=== PATIENT | female | born 1990 | race Caucasian/White ===

== ENCOUNTER 2016-07-16 22:14 | Emergency (ER) | payer OTHER ==
[2016-07-16 22:52] LABS: BILIRUBIN NEGATIVE (NEGATIVE); BLOOD NEGATIVE Ery/uL (NEGATIVE); CLARITY CLEAR (CLEAR); COLOR YELLOW (YELLOW); GLUCOSE (U) NORMAL (NORMAL); KETONE (U) NEGATIVE (NEGATIVE); LEUKOCYTES NEGATIVE Leu/uL (NEGATIVE); NITRITE NEGATIVE (NEGATIVE); PROTEIN NEGATIVE (NEGATIVE); SPECIFIC GRAVITY >=1.030 (1.001-1.030)
[2016-07-16 23:07] LABS: BASOPHIL 0.2 % (0-2); EOSINOPHIL 2.3 % (0-5); HCT 35.9 % (37.0-47.0); HGB 11.9 g/dl (12.5-16.0); LYMPHOCYTE 21.4 % (15-48); MCH 31.4 pg (25.0-31.0); MCHC 33.1 g/dL (32.0-36.0); MCV 94.7 fL (78.0-100.0); MONOCYTE 6.9 % (0-12); MPV 9.8 fL (6.0-9.5); NEUTROPHIL 69.2 % (41-80); PLT 283 K/uL (150-400); RBC 3.79 M/uL (4.20-5.40); RDW 14.8 % (11.5-14.0)
[2016-07-16 23:23] LABS: CREATININE 0.5 mg/dL (0.5-1.0)
== END 2016-07-17 00:38 | disposition home or self-care (01) ==
LOC: FER 22:14
PROVIDERS: Nurse Practitioner
DX: O20.0 Threatened abortion (principal); O99.511 Diseases of the respiratory system complicating pregnancy, first trimester; J45.909 Unspecified asthma, uncomplicated; O99.331 Smoking (tobacco) complicating pregnancy, first trimester; F17.200 Nicotine dependence, unspecified, uncomplicated; Z79.51 Long term (current) use of inhaled steroids; Z87.442 Personal history of urinary calculi; Z3A.10 10 weeks gestation of pregnancy
CPT/HCPCS: 36415; 76817; 80048; 81003; 84702; 85025; 86900; 86901

== ENCOUNTER 2016-10-05 21:25 | Emergency (ER) | payer OTHER ==
[2016-10-05 22:33] LABS: BILIRUBIN NEGATIVE (NEGATIVE); BLOOD NEGATIVE Ery/uL (NEGATIVE); CLARITY CLEAR (CLEAR); COLOR YELLOW (YELLOW); GLUCOSE (U) NORMAL (NORMAL); KETONE (U) NEGATIVE (NEGATIVE); LEUKOCYTES 1+ Leu/uL (NEGATIVE); NITRITE NEGATIVE (NEGATIVE); PROTEIN TRACE (LOW) mg/dL (NEGATIVE); SPECIFIC GRAVITY 1.015 (1.001-1.030)
[2016-10-05 22:43] LABS: BACTERIA 1+; URINARY WBC 20-50
== END 2016-10-06 00:51 | disposition home or self-care (01) ==
LOC: FER 21:25
PROVIDERS: Nurse Practitioner
DX: N30.00 Acute cystitis without hematuria (principal); J45.909 Unspecified asthma, uncomplicated; F17.200 Nicotine dependence, unspecified, uncomplicated; Z87.442 Personal history of urinary calculi; Z79.51 Long term (current) use of inhaled steroids
CPT/HCPCS: 81001; 87088; J2270

== ENCOUNTER 2021-11-08 10:01 | Inpatient (IN) | payer OTHER ==
[~2021-11-08] VITALS: Ht 162.6 cm; Wt 66.9 kg
[2021-11-08 11:21] LABS: BASOPHIL 0.3 % (0-2); EOSINOPHIL 1.3 % (0-5); HCT 36.8 % (37.0-47.0); HGB 11.7 g/dl (12.5-16.0); LYMPHOCYTE 17.1 % (15-48); MCH 30.6 pg (25.0-31.0); MCHC 31.8 g/dL (32.0-36.0); MCV 96.3 fL (78.0-100.0); MONOCYTE 6.8 % (0-12); MPV 10.5 fL (6.0-9.5); NEUTROPHIL 73.8 % (41-80); NRBC 0; PLT 264 K/uL (150-400); RBC 3.82 M/uL (4.20-5.40); RDW 12.6 % (11.5-14.0); WBC 6.8 K/uL (4.0-10.5)
[2021-11-08 11:53] LABS: ALBUMIN 3.5 g/dL (3.4-5.0); BILIRUBIN - TOTAL 0.2 mg/dL (0.2-1.0); BUN/CREAT RATIO (CALC) 15.5 RATIO; CREATININE 0.84 mg/dL (0.51-0.95); GLOBULIN (CALCULATION) 3.1 g/dL; POTASSIUM 3.3 mmol/L (3.5-5.1); TOTAL PROTEIN 6.6 g/dL (6.4-8.2)
[2021-11-08 14:38] LABS: INR 1.09 (0.9-1.2); PROTHROMBIN TIME 13.5 SECONDS (11.8-13.4); PTT 31.5 SECONDS (24.4-34.7)
[2021-11-08 14:48] LABS: HCT 32.1 % (37.0-47.0); HGB 10.2 g/dL (12.5-16.0)
[2021-11-08 15:01] LABS: BILIRUBIN NEGATIVE (NEGATIVE); BLOOD 2+ Ery/uL (NEGATIVE); CLARITY CLOUDY (CLEAR); COLOR YELLOW (YELLOW); GLUCOSE (U) NORMAL (NORMAL); LEUKOCYTES NEGATIVE Leu/uL (NEGATIVE); NITRITE POSITIVE (NEGATIVE); PROTEIN NEGATIVE (NEGATIVE); SPECIFIC GRAVITY >=1.030 (1.001-1.030); UROBILINOGEN 0.2 mg/dL (0.2-1.0)
[2021-11-08 15:02] LABS: AMPHETAMINES POSITIVE (NEGATIVE); BARBITURATES NEGATIVE (NEGATIVE); ECSTASY (MDMA) POSITIVE (NEGATIVE); MARIJUANA (THC) NEGATIVE (NEGATIVE); METHADONE NEGATIVE (NEGATIVE); OPIATES NEGATIVE (NEGATIVE); OXYCODONE NEGATIVE (NEGATIVE)
[2021-11-08 15:09] LABS: AMORPHOUS PHOSPHATE CRYSTALS LARGE; BACTERIA 1+; CALCIUM PHOSPHATE CRYSTALS TRACE; URINARY WBC RARE
[2021-11-08 20:05] LABS: HCT 30.7 % (37.0-47.0); HGB 10.1 g/dL (12.5-16.0)
--- NOTE | 2021-11-09 00:53 | NUR ---
PT REFUSED TO TAKE 6 OF THE 17G PACKETS OF MIRALAX. I EDUCATED THE PT ON THE IMPORTANCE OF A COMPLETE BOWEL PREP FOR HER PLANNED PROCEDURES AND SHE ACKNOWLEDGED BUT REFUSED TO CONTINUE.
[2021-11-09 06:08] LABS: HBSAG SCREEN Negative (Negative); HCV AB 0.1 (0.0-0.9); HEP A AB, IGM Negative (Negative); HEP B CORE AB, IGM Negative (Negative)
[2021-11-09 06:35] LABS: BASOPHIL 0.4 % (0-2); EOSINOPHIL 2.7 % (0-5); HCT 29.9 % (37.0-47.0); HGB 9.7 g/dl (12.5-16.0); LYMPHOCYTE 31.9 % (15-48); MCH 31.4 pg (25.0-31.0); MCHC 32.4 g/dL (32.0-36.0); MCV 96.8 fL (78.0-100.0); MONOCYTE 6.5 % (0-12); MPV 10.7 fL (6.0-9.5); NEUTROPHIL 58.3 % (41-80); NRBC 0; PLT 238 K/uL (150-400); RBC 3.09 M/uL (4.20-5.40); RDW 12.6 % (11.5-14.0); WBC 5.2 K/uL (4.0-10.5)
[2021-11-09 07:22] LABS: BILIRUBIN - TOTAL 0.4 mg/dL (0.2-1.0); BUN/CREAT RATIO (CALC) 14.7 RATIO; CREATININE 0.75 mg/dL (0.51-0.95); GLOBULIN (CALCULATION) 2.6 g/dL; POTASSIUM 3.8 mmol/L (3.5-5.1); TOTAL PROTEIN 5.6 g/dL (6.4-8.2)
[2021-11-09 09:08] LABS: HCG (URINE) SCREEN NEGATIVE (NEGATIVE)
--- NOTE | 2021-11-09 12:38 | NUR ---
11/09 A social work referral was received re: history of IV drug use. Patient left AMA prior to social assessment.
== END 2021-11-09 09:00 | disposition left against medical advice (07) | DRG 378 ==
LOC: FER 10:01 → FTCU 14:29
PROVIDERS: Emergency Medicine; Nurse Practitioner; ADMIT Internal Medicine
DX: K62.5 Hemorrhage of anus and rectum (principal); N39.0 Urinary tract infection, site not specified; K52.9 Noninfective gastroenteritis and colitis, unspecified; J45.909 Unspecified asthma, uncomplicated; Z20.822 Contact with and (suspected) exposure to COVID-19; R00.0 Tachycardia, unspecified; K80.20 Calculus of gallbladder without cholecystitis without obstruction; K59.00 Constipation, unspecified; Z86.59 Personal history of other mental and behavioral disorders; Z84.1 Family history of disorders of kidney and ureter; Z28.310 Unvaccinated for COVID-19
CPT/HCPCS: 36415; 76705; 80053; 80074; 80305; 81001; 82270; 84145; 84703; 85014; 85018; 85025; 85610; 85730; 86850; 86900; 86901; 87076; 87088; 87186; 93005; J0696; J2405; J7030; U0002